=== PATIENT | male | born 2000 | race Caucasian/White ===

== ENCOUNTER → 2024-02-01 06:30 | Day surgery (SDC) | payer OTHER, SELFPAY | LOC: GI 06:30 | PROVIDERS: ATTENDING PHYSICIAN Internal Medicine | DX: R10.32 Left lower quadrant pain (principal); K52.9 Noninfective gastroenteritis and colitis, unspecified; K64.8 Other hemorrhoids | CPT/HCPCS: 45380; 88305 ==

== ENCOUNTER 2024-02-03 20:50 | Emergency (ER) | payer OTHER, SELFPAY ==
[2024-02-03 20:52] VITALS: BP 138/88
[2024-02-03 21:28] VITALS: BMI 42.7
[2024-02-03 21:34] LABS: % Basophils 0.3 % (0-2); % Eosinophils 1.1 % (0-6); % Immature Granulocytes 0.2 % (0-0.5); % Lymphocytes 37.2 % (20.5-51.1); % Neutrophils 52.2 % (42.2-75.2); Absolute Eosinophils 0.1 10^3/uL (0-0.7); Absolute Lymphocytes 3.7 10^3/uL (1.2-3.4); Absolute Monocytes 0.9 10^3/uL (0.1-0.6); Absolute Neutrophils 5.3 10^3/uL (1.4-6.5); Hematocrit 45.2 % (39.0-52.0); Hemoglobin 16.2 g/dL (13.0-18.0); Mean Corp Hgb Conc. 35.8 g/dL (33.0-37.0); Mean Corpuscular Hgb 28.5 pg (27.0-31.0); Mean Corpuscular Volume 79.6 fL (80.0-94.0); Mean Platelet Volume 9.3 fL (7.4-10.4); Nucleated Red Blood Cells % 0 % (-); Platelet Count 292 10^3/uL (130-400); Red Blood Cell Count 5.68 10^6/uL (4.70-6.10); Red Cell Dist. Width 12.3 % (11.5-14.5); White Blood Cell Count 10.1 10^3/uL (4.8-10.8)
[2024-02-03 21:56] LABS: Blood Urea Nitrogen 13 mg/dl (9-20); Calcium 10.3 mg/dl (8.4-10.2); Carbon Dioxide 25 mmol/L (22-30); Chloride 101 mmol/L (98-107); Estimated Creatinine Clearance > 125 ml/min; Glucose 95 mg/dl (70-99); Sodium 137 mmol/L (135-145); eGFR > 60.00
[2024-02-03 22:00] VITALS: BP 137/60
[2024-02-03 22:04] LABS: Troponin I < 0.012 ng/ml
[2024-02-03] MEDS: DUONEB 3 ML INH (22:08)
--- NOTE | 2024-02-03 22:10 | ED.GENMED ---
History of Present Illness
General
Chief Complaint: Chest Pain
Source: patient
Exam Limitations: none
Time Seen by Provider: 02/03/24 21:31
Travel History
Have you had any contact with someone who has COVID-19?: No
Do you have any symptoms of coronavirus? Fever > 100 degrees, chills, cough, shortness of breath, sore throat, loss of taste or smell, muscle aches, or headache?: No
History of Present Illness
History of Present Illness:
This is a 23 year old male that comes in with c/o chest tightness. States that he feels like there is a weight on his chest. States that when he lays down the only thing he can think about is his breathing and his chest tightness. States that his
chest just doesn't feel right. States that it is harder to breath when he lays down. States that he has also had diarrhea and felt lightheaded. Denies any fever, chills, abd pain, nausea, vomiting, headache, dizziness, urinary burning.
Past History
Past History
ED Past Medical History: Psychiatric (Depression, Suicidal attempt, Anxiety) and Other (Pericarditis, ADHD, )
Social History
Tobacco: Non-smoker
Alcohol: None
Drug: Marijuana
Personal: Single
Living: with family
Review of Systems
Review of Systems
All Other Systems: ROS reviewed and negative except as documented in HPI and ROS
Constitutional: Reports no symptoms; Denies fever or chills
EENT: Reports no symptoms
Respiratory: Reports trouble breathing; Denies cough
Cardiac: Reports chest pain
ABD/GI: Reports diarrhea; Denies abdominal pain, nausea or vomiting
: Reports no symptoms; Denies dysuria, frequency or urgency
Musculoskeletal: Reports no symptoms
Skin: Reports no symptoms
Neurological: Reports other (Lightheaded); Denies dizzy or headache
Psychiatric: Reports no symptoms
Phy Exam
General Physical Exam
General Presentation: no apparent distress
General age: appears stated age
General Skin: warm and dry
General Habitus: normal
General Mental: alert
General Hydration: appears well hydrated
ENT Exam
ENT Exam: TM's normal, pharynx normal and neck supple
Eye Exam
Eye Exam: EOMI
Cardiovascular Exam
Cardiovascular Exam: regular rate/rhythm, no edema, no murmur and normal peripheral pulses
Pulmonary Exam
Pulmonary Exam: lungs clear, no respiratory distress, no rales, chest non tender, no crackles, no rhonchi, no wheezing and no cough
Gastrointestinal Exam
Gastrointestinal Exam: normal bowel sounds, non tender, soft, no organomegaly, no pulsatile mass and non distended
Musculoskeletal Exam
Musculoskeletal Exam: full ROM and no edema
Skin Exam
Skin Exam: normal color, warm/dry, no rash and no petechia
Psychiatric Exam
Psychiatric Exam: normal mood/affect
Scores
Heart Score for Chest Pain Patients
STEMI patient?: No
History: Slightly or Non-Suspicious
ECG: Normal
Age: </= 45 years
Risk Factors: No Risk Factors
Troponin: </= Normal Limit
Heart Score for Chest Pain Patients: 0
Heart Score Risk: 2.5% MACE over next 6 weeks
Course
Orders/Labs/Results
Orders:
Orders
02/03/24 20:52
Electrocardiogram (*1) Urgent
Reason for Study: Chest Pain
EKG- Treatment ONCE
02/03/24 21:28
Basic Metabolic Panel Urgent
Complete Blood Count/With Diff Urgent
Troponin I Urgent
02/03/24 22:03
Ipratropium/Albuterol Sulfate [Duoneb] 3 ml INH R NOW ONE
CR Chest - 2 Views Urgent
Comment:
Reason For Exam: SOB
02/03/24 22:32
D-Dimer Urgent
Abnormal Lab Results
02/03/24
21:28
MCV 79.6 L fL
(80.0-94.0)
Absolute Lymphs (auto) 3.7 H 10^3/uL
(1.2-3.4)
Absolute Monos (auto) 0.9 H 10^3/uL
(0.1-0.6)
Calcium 10.3 H mg/dl
(8.4-10.2)
02/03/24 21:28
02/03/24 21:28
Calcium very slightly low. Otherwise normal labs. D-dimer <0.27, Troponin <0.012
Vital Signs
Initial and Last Documented VS:
Initial Vital Signs
Temp Pulse Resp BP Pulse Ox
98.7 F 86 20 138/88 97
02/03/24 20:52 02/03/24 20:52 02/03/24 20:52 02/03/24 20:52 02/03/24 20:52
Last Documented Vital Signs
Temp Pulse Resp BP Pulse Ox
98.7 F 88 30 137/60 99
02/03/24 20:52 02/03/24 22:30 02/03/24 22:30 02/03/24 22:00 02/03/24 22:34
MDM/Problems Addressed
Differential Diagnosis Includes:
Anxiety,
MDM/Problems Addressed:
This is a 23 year old male that comes in with c/o chest tightness and SOB. States that when he lays down he just doesn't feel right.
Will get labs, Chest x-ray D-dimer and give a Duo neb. Patient also has a history of anxiety and explained to patient that this may all be anxiety as his ECG is normal.
Back into see patient. Patient states that he feels some better. Explained that this is most likely anxiety as patient is focusing on his heart. Will have patient increase his water intake to 8-8oz glasses daily and follow up with the family doctor.
Return with any concerns.
Chronic conditions affecting care: Psychiatric illness
Acute Exacerbation and/or Progression of Chronic Illness: Psychiatric illness
*Radiology
Radiology exam reviewed: radiology read reviewed (Chest- No active cardiopulmonary disease)
*Pulse Oximetry
Patient hypoxic: no
*EKG
Interpreted by ED Provider?: Yes
Heart Rate: 80
Rate: normal
Rhythm: sinus
[place]: normal axis
Interval: normal interval
QRS Pattern: normal QRS
Ischemia: no ischemia
*Installation Supervisor Interpretation
Rate: normal
Heart Rate: 87
Rhythm: sinus
*Critical Care Note
Total Time (30-74mins, 75-104mins- exclusive of procedures): Not Applicable
ED Attending Note
-
Portions of this chart may have been created with voice recognition software.� Occasional wrong word or��sound alike� substitutions may have occurred due to the inherent limitations of voice recognition software.
Discharge Plan
Departure
Patient Disposition: Home (Routine Discharge)
Date of Disposition: 02/03/24
Time of Disposition: 23:08
Patient with high blood pressure during this ER visit?: Yes
Condition: Good
Covid-19: Not Applicable
Discharge Problem:
Anxiety, Chest pain
Instructions: Anxiety, Adult ED, Chest Pain PCP Follow Up, BLOOD PRESSURE
Prescriptions:
No Action
guanfacine 2 mg tablet
2 mg PO DAILY
duloxetine 30 mg capsule,delayed release(DR/EC)
30 mg PO DAILY
pantoprazole 40 mg Tablet,Delayed Release (Dr/Ec)
40 mg PO DAILY Qty: 10 0RF
ibuprofen 600 mg Tablet
600 mg PO TID 10 Days Qty: 30 0RF
colchicine 0.6 mg Tablet
0.6 mg PO DAILY Qty: 90 0RF
Referrals:
Vinay Mcdonald PA [Family Provider] - Follow up in 2-3 days
Activity Restrictions/Additional Instructions:
As discussed your blood work is normal along with your ECG and chest X-ray. This is most likely anxiety. Please increase your water intake to 8-8oz glasses daily. Follow up with the family doctor for recheck. IF YOU HAVE ANY OTHER CONCERNS PLEASE
RETURN TO THE EMERGENCY ROOM.
Interventions
Interventions:
*Risk Screen - Suicide Last Done: 02/03/24 20:52
*General Assessment Last Done: 02/03/24 20:52
*Neglect/Abuse Screening Last Done: 02/03/24 20:52
ED- Fall Risk Assessment Last Done: 02/03/24 22:34
ED- Cardiac Assessment Last Done: 02/03/24 22:34
Discharge Date and Time
Print Language: ANGOLAN
[2024-02-03 23:02] LABS: D-Dimer < 0.27 ug/mlFEU (0.00-0.50)
[2024-02-03 23:25] VITALS: BP 130/70
== END 2024-02-03 23:27 | disposition home or self-care (01) ==
LOC: EMR 20:50
PROVIDERS: Clinical Nurse Specialist Family Health; EMERGENCY PHYSICIAN Emergency Medicine; FAMILY PHYSICIAN Physician Assistant
DX: R07.89 Other chest pain (principal); F90.9 Attention-deficit hyperactivity disorder, unspecified type
CPT/HCPCS: 99283; 94640; 71046; 80048; 84484; 85025; 85379; 93005

== ENCOUNTER 2024-07-07 23:23 | Emergency (ER) | payer OTHER, SELFPAY ==
[2024-07-07 23:24] VITALS: BP 156/98; BMI 41.9
[2024-07-07 23:46] VITALS: BP 130/64
--- NOTE | 2024-07-07 23:58 | ED.GENMED ---
History of Present Illness
General
Chief Complaint: Chest Pain
Source: patient
Time Seen by Provider: 07/07/24 23:36
History of Present Illness
History of Present Illness:
23-year-old male with past medical history of previous pericarditis, ADHD and depression presenting to the emergency department for evaluation of chest discomfort, palpitations and headache that have been off and on for the better part of last month
but seemingly more acute and symptomatic over the last week or so. Patient initially thought his symptoms may have been related to the semaglutide he had been on and had discontinued this little over 10 days ago but states did not notice any relief
of symptoms despite discontinuing the medication. Patient attempts Excedrin for the headache with some relief. Denies any fevers or recent illnesses, recent travel, lower extremity edema, pleurisy, diaphoresis, exertional dyspnea orthopnea.
Social history was negative for cigarettes/tobacco or alcohol/substance abuse. Family history was also noncontributory
Past History
Past History
ED Past Medical History: Psychiatric (Depression, Suicidal attempt, Anxiety) and Other (Pericarditis, ADHD, )
ED Past Surgical History: None
Social History
Tobacco: Non-smoker
Alcohol: None
Drug: Marijuana
Personal: Single
Living: with family
Review of Systems
Review of Systems
All Other Systems: ROS reviewed and negative except as documented in HPI and ROS
Phy Exam
Physical Exam
Physical Exam:
GENERAL: Alert , in no apparent distress
EYE: conjunctiva clear
NECK: Supple
ENT: o/p clr, mmm.
CARDIAC: Regular rate and rhythm, no murmur
LUNGS: Clear breath sounds bilaterally, no acute respiratory distress, no wheezes/rales/rhonchi
NEUROLOGICAL: Alert and oriented
SKIN: Warm and dry, skin intact.
MUSCULOSKELETAL: well perfused. No edema
PSYCH: Normal and appropriate interaction.
Scores
Heart Failure Risk
Heart Failure Risk Score: Not Applicable
Heart Score for Chest Pain Patients
STEMI patient?: No
History: Slightly or Non-Suspicious
ECG: Normal
Age: </= 45 years
Risk Factors: No Risk Factors
Troponin: </= Normal Limit
Heart Score for Chest Pain Patients: 0
Heart Score Risk: 2.5% MACE over next 6 weeks
Withdrawal Assessment of Alcohol
Withdrawal Assessment Completed?: Not applicable
Course
Orders/Labs/Results
Orders:
Orders
07/07/24 23:24
EKG [Electrocardiogram (*1)] Urgent
Reason for Study: Chest Pain
EKG- Treatment ONCE
07/07/24 23:56
Complete Blood Count/With Diff Urgent
Comprehensive Metabolic Panel Urgent
Magnesium Urgent
TSH Urgent
Troponin I Urgent
07/08/24 00:00
CR Chest - 2 Views Urgent
Reason For Exam: chest pain, palpitations
Abnormal Lab Results
07/07/24
23:56
Absolute Lymphs (auto) 3.6 H 10^3/uL
(1.2-3.4)
Glucose 105 H mg/dl
(70-99)
ALT 57 H U/L
(0-50)
07/07/24 23:56
07/07/24 23:56
Vital Signs
Initial and Last Documented VS:
Initial Vital Signs
Temp Pulse Resp BP Pulse Ox
98.2 F 88 16 156/98 99
07/07/24 23:24 07/07/24 23:24 07/07/24 23:24 07/07/24 23:24 07/07/24 23:24
Last Documented Vital Signs
Temp Pulse Resp BP Pulse Ox
98.2 F 85 24 130/64 96
07/07/24 23:24 07/08/24 00:45 07/08/24 00:45 07/07/24 23:46 07/08/24 00:45
MDM/Problems Addressed
Differential Diagnosis Includes:
Cardiac dysrhythmia, electrolyte abnormality, thyroid disorder, anxiety
MDM/Problems Addressed:
23-year-old male presenting to the emergency department for evaluation of palpitations, intermittent headache and chest discomfort that has been ongoing for around 1 month, not much different today however symptoms seem to be more constant.
Scheduled to obtain a Holter monitor this coming Thursday. Primary care is also trying to get patient an echocardiogram scheduled. Patient recently discontinued all semaglutide but not noticing any change in symptoms so unlikely to be medication
side effect. Will check labs including thyroid studies, chest x-ray with anticipation of no acute abnormalities and will be stable for discharge home to continue outpatient workup.
*Radiology
Radiology exam reviewed: preliminary read by ED provider (Normal chest x-ray)
*Pulse Oximetry
Patient hypoxic: no
*EKG
Interpreted by ED Provider?: Yes
Heart Rate: 91
Rate: normal
Rhythm: sinus
[place]: normal axis
Ischemia: no ischemia
*Field Artillery Operations Man Interpretation
Rate: normal
Rhythm: sinus
*Critical Care Note
Total Time (30-74mins, 75-104mins- exclusive of procedures): Not Applicable
Patient Management
Social determinants of health affecting care: Living situation and Strong social support
Escalation/DeEscalation of care consider admission/obs:
Patient's workup unremarkable. He remains in a normal sinus rhythm at a rate in the low 80s. Stable for discharge home and outpatient management as scheduled. Aware of return precautions to the ER.
ED Attending Note
-
Portions of this chart may have been created with voice recognition software.� Occasional wrong word or��sound alike� substitutions may have occurred due to the inherent limitations of voice recognition software.
Discharge Plan
Departure
Patient Disposition: Home (Routine Discharge)
Date of Disposition: 07/08/24
Time of Disposition: 00:55
Patient with high blood pressure during this ER visit?: Yes
Discharge Problem:
Palpitations
Instructions: Palpitations
Prescriptions:
No Action
guanfacine 2 mg tablet
2 mg PO DAILY
duloxetine 30 mg capsule,delayed release(DR/EC)
30 mg PO DAILY
pantoprazole 40 mg Tablet,Delayed Release (Dr/Ec)
40 mg PO DAILY Qty: 10 0RF
ibuprofen 600 mg Tablet
600 mg PO TID 10 Days Qty: 30 0RF
colchicine 0.6 mg Tablet
0.6 mg PO DAILY Qty: 90 0RF
Referrals:
Anjali Davis CRNP [Family Provider] -
Interventions
Interventions:
*Risk Screen - Suicide Last Done: 07/07/24 23:24
*General Assessment Last Done: 07/07/24 23:24
*Neglect/Abuse Screening Last Done: 07/07/24 23:24
ED- Fall Risk Assessment Last Done: 07/07/24 23:37
*ED COVID-19 Vaccine History Last Done: 07/07/24 23:24
ED- Cardiac Assessment Last Done: 07/08/24 00:03
Discharge Date and Time
Print Language: BRITISH
[2024-07-08 00:11] LABS: % Basophils 0.4 % (0-2); % Eosinophils 1.7 % (0-6); % Immature Granulocytes 0.4 % (0-0.5); % Lymphocytes 44.1 % (20.5-51.1); % Monocytes 7.5 % (1.7-9.3); % Neutrophils 45.9 % (42.2-75.2); Absolute Eosinophils 0.1 10^3/uL (0-0.7); Absolute Lymphocytes 3.6 10^3/uL (1.2-3.4); Absolute Monocytes 0.6 10^3/uL (0.1-0.6); Absolute Neutrophils 3.8 10^3/uL (1.4-6.5); Hematocrit 44.7 % (39.0-52.0); Hemoglobin 15.1 g/dL (13.0-18.0); Mean Corp Hgb Conc. 33.8 g/dL (33.0-37.0); Mean Corpuscular Hgb 28.3 pg (27.0-31.0); Mean Corpuscular Volume 83.7 fL (80.0-94.0); Nucleated Red Blood Cells % 0 % (-); Platelet Count 286 10^3/uL (130-400); Red Blood Cell Count 5.34 10^6/uL (4.70-6.10); Red Cell Dist. Width 12.3 % (11.5-14.5); White Blood Cell Count 8.2 10^3/uL (4.8-10.8)
[2024-07-08 00:24] LABS: ALT (SGPT) 57 U/L (0-50); AST (SGOT) 35 U/L (17-59); Albumin 4.8 g/dl (3.5-5.0); Alkaline Phosphatase 71 U/L (38-126); Blood Urea Nitrogen 14 mg/dl (9-20); Calcium 9.3 mg/dl (8.4-10.2); Carbon Dioxide 24 mmol/L (22-30); Chloride 101 mmol/L (98-107); Estimated Creatinine Clearance > 125 ml/min; Glucose 105 mg/dl (70-99); Potassium 3.9 mmol/L (3.5-5.1); Sodium 139 mmol/L (135-145); Total Bilirubin 0.3 mg/dl (0.2-1.3); Total Protein 7.5 g/dl (6.3-8.2); eGFR > 60.00
[2024-07-08 00:34] LABS: Troponin I < 0.012 ng/ml
[2024-07-08 00:54] LABS: TSH 3.39 uIU/ml (0.47-4.68)
== END 2024-07-08 01:19 | disposition home or self-care (01) ==
LOC: EMR 23:23
PROVIDERS: Physician Assistant Medical; EMERGENCY PHYSICIAN Student in an Organized Health Care Education/Training Program; FAMILY PHYSICIAN Nurse Practitioner Family
DX: R00.2 Palpitations (principal); F90.9 Attention-deficit hyperactivity disorder, unspecified type; F32.A Depression, unspecified; Z86.79 Personal history of other diseases of the circulatory system; Z91.51 Personal history of suicidal behavior
CPT/HCPCS: 99283; 71046; 80053; 83735; 84443; 84484; 85025; 93005

== ENCOUNTER → 2024-07-09 08:53 | Outpatient (REF) | payer OTHER, SELFPAY | LOC: RCS 08:53 | PROVIDERS: ATTENDING PHYSICIAN Nurse Practitioner Family | DX: R42 Dizziness and giddiness (principal); R00.0 Tachycardia, unspecified | CPT/HCPCS: 93225; 93226 ==

== ENCOUNTER → 2024-08-09 12:09 | Outpatient (REF) | payer OTHER, SELFPAY | LOC: RAD 12:09 | PROVIDERS: ATTENDING PHYSICIAN Nurse Practitioner Family | DX: G44.52 New daily persistent headache (NDPH) (principal) | CPT/HCPCS: 70470; Q9967 ==